=== PATIENT | female | born 1970 | race Two or more races ===

== ENCOUNTER 2020-08-05 11:38 | Outpatient (CLI) | payer OTHER | END 2020-08-05 11:51 | disposition home or self-care (01) | LOC: RAD 11:38 | PROVIDERS: ATTEND Orthopaedic Surgery | DX: M25.571 Pain in right ankle and joints of right foot (principal); M79.671 Pain in right foot ==

== ENCOUNTER → 2025-02-08 | Emergency (ER) | payer OTHER ==
[~2025-02-08] VITALS: Ht 154.9 cm; Wt 90.7 kg
[~2025-02-08] MED LIST: COZAAR50 MG PO; METFORMIN HCL500 M3 PO; NORFLEX100MG PO; PLAVIX75 MG PO; ROSUVASTATIN CA10 MG PO; TRAMADOL HCL 50 MG TABLET PO ONE
== END | disposition home or self-care (01) ==
LOC: ER 10:57
DX: S89.81XA Other specified injuries of right lower leg, initial encounter (principal); S49.82XA Other specified injuries of left shoulder and upper arm, initial encounter; W19.XXXA Unspecified fall, initial encounter; Y93.89 Activity, other specified; Y92.098 Other place in other non-institutional residence as the place of occurrence of the external cause; Y99.8 Other external cause status; M79.604 Pain in right leg; I10 Essential (primary) hypertension; E11.9 Type 2 diabetes mellitus without complications; Z79.84 Long term (current) use of oral hypoglycemic drugs; Z88.2 Allergy status to sulfonamides; Z88.6 Allergy status to analgesic agent